=== PATIENT | male | born 1995 | race Caucasian/White ===

== ENCOUNTER 2024-01-04 06:12 | Emergency (ER) | payer OTHER ==
[2024-01-04 06:23] VITALS: BP 140/85; O2SAT 100
--- NOTE | 2024-01-04 06:33 | ED Physician Documentation ---
PD HPI NECK PAIN - Stated complaint Stated Complaint: NECK PX - Chief complaint Chief Complaint: General - History obtained from History obtained from: Patient - History of Present Illness Timing - onset: Last night Timing - duration: Hours Timing - details: Abrupt onset, Still present Location: Mid, Right Quality: Pain, Spasm Associated symptoms: No: Fever, Numbness, Incontinent of urine, Unable to urinate, Hematuria, Incontinent of stool Improves with: Rest, Position Worsened by: Movement, Twisting Contributing factors: Other (working out in gym) Similar symptoms before: No diagnosis Recently seen: Not recently seen - Additional information Additional information: 28-year-old Remi Huizar has come to the emergency department this morning with a stiff neck. He indicates that this actually occurred last night when he was at the gym doing a press and he felt some stiffening in his neck at that time. He did take some ibuprofen had a hard time sleeping last night and indicates that when he is laying down in his bed he is unable to lift his head up. He denies any recent or current illness denies any other specific symptoms specifically denies numbness tingling weakness. Review of Systems Constitutional: denies: Fever, Chills, Myalgias Eyes: denies: Decreased vision Ears: denies: Ear pain Nose: denies: Rhinorrhea / runny nose, Congestion Throat: denies: Sore throat Cardiac: denies: Chest pain / pressure, Palpitations Respiratory: denies: Dyspnea, Cough GI: denies: Abdominal Pain, Nausea, Vomiting, Constipation, Diarrhea : denies: Dysuria, Frequency Skin: denies: Rash Musculoskeletal: reports: Neck pain. denies: Back pain, Extremity pain Neurologic: denies: Generalized weakness, Focal weakness, Numbness PD PAST MEDICAL HISTORY - Past Medical History Past Medical History: No - Past Surgical History Past Surgical History: No - Present Medications Home Medications: Ambulatory Orders Medication Instructions Recorded Confirmed Cyclobenzaprine [Flexeril] 10 mg PO TID PRN #20 tablet 01/04/24 HYDROcod/ACETAM 5/325 [[place] 5/325] 1 - 2 tablet PO Q6H PRN #14 tablet 01/04/24 - Allergies Allergies/Adverse Reactions: Allergies Allergy/AdvReac Type Severity Reaction Status Date / Time No Known Drug Allergies Allergy Verified 01/04/24 06:22 - Social History Does the pt smoke?: No Smoking Status: Never smoker Does the pt drink ETOH?: No Does the pt have substance abuse?: No PD ED PE NORMAL - Vitals Vital signs reviewed: Yes (Hypertensive mild) - General General: Alert and oriented X 3, No acute distress, Well developed/nourished - HEENT HEENT: Atraumatic, PERRL, EOMI - Neck Neck: Supple, no meningeal sign, No bony TTP, Other (Mild point tenderness to the paraspinous muscles on the right side of the neck at about mid cervical spine down to the lateral aspect of the trapezius) - Respiratory Respiratory: No respiratory distress - Derm Derm: Normal color, Warm and dry, No rash - Extremities Extremities: No deformity, No edema - Neuro Neuro: Alert and oriented X 3, gluer 2-12 intact, No motor deficit, No sensory deficit, Normal speech Eye Opening: Spontaneous Motor: Obeys Commands Verbal: Oriented GCS Score: 15 - Psych Psych: Normal mood, Normal affect Results - Vitals Vitals: Vital Signs - 24 hr 01/04/24 06:18 Temperature 36.1 C L Heart Rate 59 L Respiratory 15 Rate Blood Pressure 140/85 H O2 Saturation 100 Oxygen O2 Source Room air PD Medical Decision Making - ED course Complexity details: considered differential, d/w patient ED course: 28-year-old male with a stiff neck after doing some weight lifting has had problems with stiff muscles a number of times previously. He is administered dexamethasone 10 mg orally and 30 mg of Toradol. We will place him on a short course of pain medication a muscle relaxant. Departure - Departure Disposition: 01 Home, Self Care Clinical Impression: Torticollis, spasmodic Condition: Stable Instructions: Torticollis Follow-Up: [facility] [Provider Group] Prescriptions: Cyclobenzaprine [Flexeril] 10 mg PO TID PRN #20 tablet PRN Reason: Spasms HYDROcod/ACETAM 5/325 [[place] 5/325] 1 - 2 tablet PO Q6H PRN #14 tablet PRN Reason: Pain Comments: Freeman today it looks like you have some significant muscle spasm in your neck and we have given you a dose of dexamethasone and a dose of Toradol to control your symptoms. This sometimes requires several days to work its way out and I have E scribed some pain medication a muscle relaxant to the [facility] in [place]. I have given you a note for work for 2 days. The recommendation is to ice your neck and gently stretch it. Our expectation with treatment is improvement in 1 to 3 days with resolution by the end of the week. Forms: Activity restrictions
[2024-01-04] MEDS: CHERRY SYRUP 10 ML UDC PO ONE (06:46)
[2024-01-04] MEDS: KETOROLAC 30 MG/ML VIAL IM STA (06:46)
[2024-01-04] MEDS: DEXAMETHASONE 10 MG/ML VIAL PO STA (06:47)
== END 2024-01-04 06:53 | disposition home or self-care (01) ==
LOC: ED 06:12
DX: G24.3 Spasmodic torticollis (principal)
CPT/HCPCS: 96372; 99283; A9270

== ENCOUNTER 2024-03-15 09:33 | Emergency (ER) | payer OTHER ==
[2024-03-15 09:44] VITALS: BP 147/105; O2SAT 100
--- NOTE | 2024-03-15 10:26 | ED Physician Documentation ---
PD HPI SKIN - Stated complaint Stated Complaint: RT KNEE SWOLLEN/PX - Chief complaint Chief Complaint: Wound - History obtained from History obtained from: Patient - Additional information Additional information: Patient is a 28-year-old male presenting for evaluation of redness, swelling and itchiness behind his right knee which has been present for 3 to 4 days. He is unsure if he was bit by anything. He denies any known trauma. No fevers. Ambulating without any difficulty. No pain to the knee. Review of Systems Constitutional: denies: Fever Cardiac: denies: Chest pain / pressure Respiratory: denies: Dyspnea Skin: reports: Rash PD PAST MEDICAL HISTORY - Past Medical History Past Medical History: No - Past Surgical History Past Surgical History: No - Present Medications Home Medications: Ambulatory Orders Medication Instructions Recorded Confirmed Cetirizine [ZyrTEC] 10 mg PO DAILY PRN #10 tablet 03/15/24 cephALEXin [Keflex] 500 mg PO Q6H #28 cap 03/15/24 - Allergies Allergies/Adverse Reactions: Allergies Allergy/AdvReac Type Severity Reaction Status Date / Time No Known Drug Allergies Allergy Verified 03/15/24 09:43 - Social History Does the pt smoke?: No Smoking Status: Never smoker Does the pt drink ETOH?: No Does the pt have substance abuse?: No PD ED PE NORMAL - General General: Alert and oriented X 3, No acute distress, Well developed/nourished - HEENT HEENT: Atraumatic - Neck Neck: Supple, no meningeal sign - Cardiac Cardiac: Strong equal pulses - Respiratory Respiratory: No respiratory distress - Derm Derm: Other (Palm size area of redness to posterior R knee; small raised area - ?site of insect bite/sting; no fluctuance; no drainage) - Extremities Extremities: Normal ROM s pain Results - Vitals Vitals: Vital Signs - 24 hr 03/15/24 09:39 Temperature 36.2 C L Heart Rate 54 L Respiratory 20 Rate Blood Pressure 147/105 H O2 Saturation 100 Oxygen O2 Source Room air PD Medical Decision Making - ED course ED course: Pt Presenting for evaluation of redness, itchiness to posterior R knee. Normal range of motion of the right knee with no signs of septic joint. No trauma. No fluctuance to suggest abscess. Appears to have a small raised area concerning for possible insect sting or bite. No abnormal drainage. Unclear whether redness and swelling is from a large localized reaction as it has already been 3 to 4 days. It could have some superimposed cellulitis. Will treat for both with antihistamines and cephalexin. Patient is otherwise well-appearing. Counseled on concerning symptoms to return for. Departure - Departure Disposition: 01 Home, Self Care Clinical Impression: Cellulitis of right leg, Insect bite of right leg Condition: Stable Instructions: ED Bite Sting Insect Gen Allergic React, ED Infec Skin Cellulitis Prescriptions: cephALEXin [Keflex] 500 mg PO Q6H #28 cap Cetirizine [ZyrTEC] 10 mg PO DAILY PRN #10 tablet PRN Reason: Allergy Symptoms Comments: The area behind her right knee looks like there was an insect bite or sting that is causing a localized reaction. Given the size of the reaction I would recommend you take an antihistamine such as Zyrtec to help with the inflammation as well as itchiness. Because there may also be a component of an infection I will also start you on an antibiotic and have also sent this prescription to [facility] in [place]. Return to the ER if you develop any worsening such as increased swelling or discomfort or any other concerns. Forms: PCP List Discharge Date/Time: 03/15/24 10:43
== END 2024-03-15 10:43 | disposition home or self-care (01) ==
LOC: ED 09:33
DX: S80.861A Insect bite (nonvenomous), right lower leg, initial encounter (principal); L03.115 Cellulitis of right lower limb; W57.XXXA Bitten or stung by nonvenomous insect and other nonvenomous arthropods, initial encounter
CPT/HCPCS: 99282; 99283